=== PATIENT | female | born 1960 | race Caucasian/White ===

== ENCOUNTER 2024-01-22 23:51 | Emergency (ER) | payer OTHER, SELFPAY ==
--- NOTE | ~2024-01-22 | XR_ITS ---
Left Forearm AP and lateral views of the left forearm were performed. Clinical History: Pain Findings: No fracture or dislocation is seen. Osseous alignment in anatomic. Joint spaces are prese rved. Soft tissues are unremarkable. Impression: Unremarkable exam. Reviewed, dictated and finalized at location M. Impression: Unremarkable exam.
--- NOTE | ~2024-01-22 | XR_ITS ---
Left wrist Technique: PA, oblique, lateral, and ulnar deviation views were obtained. Clinical History: Pain Findings: No acute fracture or dislocation is seen. Osseous alignment is anatomic. There is mild dege nerative change at the first CMC joint. Soft tissues are unremarkable. Impression: No acute fracture or dislocation. 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 Reviewed, dictated and finalized at location . Impression: No acute fracture or dislocation. 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
[2024-01-23 00:01] VITALS: BP 147/92; PULSE 73; RESP 20; TEMP 36.9; O2SAT 96
--- NOTE | 2024-01-23 01:33 | ED.UPPEXIN ---
HPI - Extremity Injury (Upper) General Chief Complaint: Extremity Injury, Upper Stated Complaint: fall, arm pain Time Seen by Provider: 01/23/24 00:55 Source: patient Mode of arrival: ambulatory Limitations: no limitations History of Present Illness HPI narrative: This is a 63 year old female that presents to the ER for left forearm and wrist injury. Sustained 2 days prior. Reports she fell onto her forearm. Has had worsening pain since. Denies decreased ROM or numbness. Related Data Allergies Allergy/AdvReac Type Severity Reaction Status Date / Time ciprofloxacin Allergy RASH Verified 06/21/12 11:07 Penicillins Allergy RASH Verified 06/21/12 11:07 CIPROFLOXACIN HCL Allergy RASH Uncoded 06/21/12 11:07 Review of Systems Review of Systems: CONSTITUTIONAL: Denies fever MUSCULOSKELETAL: Reports joint pain, and myalgia. NEUROLOGIC: Denies numbness All systems reviewed & are unremarkable except as noted in HPI and below PMFSH Past Medical History Medical History (Updated 01/23/24 @ 02:56 by Latisha Zee PA-C) History of hypertension History of hypothyroidism Social History Social History (Updated 01/23/24 @ 01:35 by Latisha Zee PA-C) Substance use: never Exam Narrative: GENERAL: Well-appearing, well-nourished, and in no acute distress. HEAD: Normocephalic, atraumatic. EYES: EOMI. EXTREMITIES: Normal range of motion. No edema, erythema or obvious deformity. Normal radial pulse. Normal sensation SKIN: Warm, dry, no rash. NEURO: No focal deficits. Alert and oriented x3. PSYCH: Normal mood and affect Course Course Emergency Course: Patient updated on her workup and agrees with plan of care Vital Signs Vital signs: Vital Signs Temperature 98.5 F 01/23/24 00:01 Pulse Rate 73 01/23/24 00:01 Respiratory Rate 20 01/23/24 00:01 Blood Pressure 147/92 H 01/23/24 00:01 Pulse Oximetry 96 01/23/24 00:01 Oxygen Delivery Room Air 01/23/24 00:01 Temperature 98.5 F 01/23/24 00:01 Pulse Rate 73 01/23/24 00:01 Respiratory Rate 20 01/23/24 00:01 Blood Pressure 147/92 H 01/23/24 00:01 Pulse Oximetry 96 01/23/24 00:01 Oxygen Delivery Room Air 01/23/24 00:01 MDM - Extremity Injury (Upper) MDM Narrative Medical decision making narrative: Patient presents to the emergency department for left wrist and forearm injury sustained a couple of days prior to arrival. She is neurovascularly intact. Left wrist and forearm x-rays without acute osseous abnormalities. Patient was updated on her workup and agrees with plan of care. She is to follow up with her primary provider. She was given warnings to return to the ER Differential Diagnosis Differential diagnosis: Likely sprain and strain of wrist, fracture of wrist and other (contusion) Imaging Data My impression: Left wrist and forearm x-rays: No acute osseous abnormalities Critical Care Time Critical Care Time Critical Care Time: No Discharge Plan Discharge Clinical Impression: Contusion of left forearm Qualifiers: Encounter type: initial encounter Qualified Code(s): S50.12XA - Contusion of left forearm, initial encounter Patient Disposition: Home, Self-Care Condition: Stable Instructions: Contusion in Adults (ED) Additional Instructions: Return to the emergency department if you experience fever, redness and swelling of your arm, weakness, numbness, or any other symptoms that are concerning to you. Rest. Elevate. Ice to the area. Over the counter pain medication as needed Follow up with primary care doctor Follow-up/Referrals: Angelita,Derick Dubon MD [Primary Care Provider] -
[2024-01-23 03:12] VITALS: BP 138/75; PULSE 77; RESP 15; TEMP 36.6; O2SAT 99
== END 2024-01-23 03:13 | disposition home or self-care (01) ==
PROVIDERS: Emergency Provider Physician Assistant; PCP Family Medicine
DX: S50.12XA Contusion of left forearm, initial encounter (principal); I10 Essential (primary) hypertension; E03.9 Hypothyroidism, unspecified; W19.XXXA Unspecified fall, initial encounter
CPT/HCPCS: 73090; 73110; 99283